=== PATIENT | male | born 1980 | race Caucasian/White ===

== ENCOUNTER 2017-04-28 16:33 | Emergency (ER) | payer BC, OTHER ==
[2017-04-28 16:59] VITALS: BP 139/93
--- NOTE | 2017-04-28 19:22 | UC ---
Abdominal Pain Male HPI - HPI Summary HPI Summary: Patient presents to the with CC of mid upper abdominal pain which is sharp and shooting through to the back. Denies urinary symptoms. Denies C/D. Notes to nausea and vomiting all day. Denies known fevers. Pain has been constant since this morning and worsening - worst abdominal pain of life. Health history is non-contributory. Cholecystectomy. - History of Current Complaint Hx Obtained From: Patient Onset/Duration: Sudden Onset Timing: Constant Severity Initially: Severe Severity Currently: Severe Pain Intensity: 10 Pain Scale Used: 0-10 Numeric Location: Discrete At: RUQ, Epigastric Radiates to: Back Character: Sharp Aggravating Factor(s): Food, Movement, Deep Breaths Alleviating Factor(s): Nothing Associated Signs And Symptoms: Positive: Vomiting. Negative: Constipation, Urinary Symptoms, Decreased Appetite, Diarrhea - Risk Factors Testicular Torsion: Negative Cardiac Risk Factors: Negative <Renée Nñuez - Last Filed: 04/28/17 19:18> <Rhonda Osei - Last Filed: 04/28/17 21:54> - History of Current Complaint Chief Complaint: UCGI Stated Complaint: STOMACH COMPLAINT Time Seen by Provider: 04/28/17 17:48 - Allergies/Home Medications Allergies/Adverse Reactions: Allergies Allergy/AdvReac Type Severity Reaction Status Date / Time No Known Allergies Allergy Verified 04/28/17 19:05 PMH/Surg Hx/FS Hx/Imm Hx Previously Healthy: Yes - Surgical History Surgical History: Yes Surgery Procedure, Year, and Place: [facility] 04/08. RADIO FREQUENCY NERVE ABLATION 2012 - Family History Known Family History: Positive: None - no family history of heart disease or diabetes., Unknown - Social History Occupation: Employed Full-time Lives: With Family Alcohol Use: Rare Substance Use Type: None Smoking Status (MU): Heavy Every Day Tobacco Smoker Type: Cigarettes Amount Used/How Often: 1 ppd Length of Time of Smoking/Using Tobacco: 12 years Have You Smoked in the Last Year: Yes <Renée Nuñez - Last Filed: 04/28/17 19:18> Review of Systems Constitutional: Negative ENT: Negative Respiratory: Negative Cardiovascular: Negative Gastrointestinal: Abdominal Pain, Vomiting, Nausea Genitourinary: Negative Motor: Negative Neurovascular: Negative, Decreased Sensation Neurological: Negative Is Patient Immunocompromised?: No All Other Systems Reviewed And Are Negative: Yes <Renée Nuñez - Last Filed: 04/28/17 19:18> Physical Exam Triage Information Reviewed: Yes Appearance: Well-Appearing, Well-Nourished Vital Signs: Initial Vital Signs Temp 98.5 F 04/28/17 16:55 Pulse 92 04/28/17 16:55 Resp 18 04/28/17 16:55 BP 139/93 04/28/17 16:55 Pulse Ox 98 04/28/17 16:55 Vital Signs Reviewed: Yes Eye Exam: Normal Eyes: Positive: Conjunctiva Clear Neck exam: Normal Neck: Positive: Supple, No Lymphadenopathy Respiratory Exam: Normal Respiratory: Positive: Chest non-tender, Lungs clear Cardiovascular Exam: Normal Cardiovascular: Positive: RRR Abdomen Description: Positive: Guarding. Negative: CVA Tenderness (R), CVA Tenderness (L), McBurney's Point Tenderness, Peritoneal Signs, Pulsatile Mass, Splenomegaly Musculoskeletal Exam: Normal Musculoskeletal: Positive: Strength Intact Neurological Exam: Normal Neurological: Positive: Alert Psychological: Positive: Normal Response To Family Skin Exam: Normal <Renée Nuñez - Last Filed: 04/28/17 19:18> Vital Signs: Initial Vital Signs Temp 98.5 F 04/28/17 16:55 Pulse 92 04/28/17 16:55 Resp 18 04/28/17 16:55 BP 139/93 04/28/17 16:55 Pulse Ox 98 04/28/17 16:55 <Rhonda Osei - Last Filed: 04/28/17 21:54> Abd Pain Male Course/Dx - Course Course Of Treatment: Patient evaluated for acute abdominal pain. Immediately after physical exam, patient is recommneded to go directly to the ED. Patient agrees and no tests were done in the UC. Discussed possibilities including pancreatitis as a possibility of his symptoms. Given information - but did NOT dx. - Differential Dx/Clinical Impression Differential Diagnosis/HQI/PQRI: Appendicitis, Bowel Obstruction, Constipation, Pancreatitis Provider Diagnoses: Abdominal Pain - acute <Renée Nuñez - Last Filed: 04/28/17 19:18> Discharge <Renée Nuñez - Last Filed: 04/28/17 19:18> <Rhonda Osei - Last Filed: 04/28/17 21:54> - Discharge Plan Condition: Stable Disposition: HOME Patient Education Materials: Pancreatitis (ED), Abdominal Pain (ED) Referrals: No Primary Care Phys,NOPCP [Primary Care Provider] - Additional Instructions: I recommend you go directly to the ED I am not dx you with pancreatitis, I am only giving you information Attestation Statement User Type: Provider - I was available for consult. This patient was seen by the [facility]. The patient was not presented to, seen by, or examined by me. -Olivia <Rhonda Osei - Last Filed: 04/28/17 21:54>
== END 2017-04-28 18:04 | disposition home or self-care (01) ==
LOC: UCEAST 16:33
DX: R10.9 Unspecified abdominal pain (principal); F17.210 Nicotine dependence, cigarettes, uncomplicated
CPT/HCPCS: 99212; G0463

== ENCOUNTER → 2017-04-28 18:56 | Emergency (ER) | payer SELFPAY ==
[2017-04-28 19:07] VITALS: BP 146/94
== END | disposition home or self-care (01) ==
LOC: ED 18:56
DX: R10.10 Upper abdominal pain, unspecified (principal); Z53.21 Procedure and treatment not carried out due to patient leaving prior to being seen by health care provider
CPT/HCPCS: 99281

== ENCOUNTER 2018-08-29 11:00 | Emergency (ER) | payer BC ==
--- NOTE | 2018-08-29 11:36 | ED ---
Substance Abuse/Use - HPI Summary HPI Summary: A 38 y/o male brought in by ambulance presents to the ED c/o drowsiness s/p abuse of prescribed medications. In the ED room, the patient has a pulse of 83 BPM, O2 saturation of 99%, respiratory rate of 22, and blood pressure of 135/ 105. As per EMS, the patient's vitals are stable, blood-glucose was 86, lungs are clear, and patient is very fatigued. Patient was found in his car at a gas station. The patient just completed a 24 hour shift confirmed by mother. According to the patient, he recently got out of work and he was fatigued so he thought he would take a nap in his car (parked and turned off) before going home which is a few miles away. It was noted that the patient was seen at another facility for neck pain in which he received Oxycodone and Xanax medications. According to the patient, he worked at the [employer] from 1445 to 2245 and then at [employer] from 2300 to 0800 this morning. He stated that after work he went to his mother's house to see his children. He stated that on the way back home he stopped at another gas station for a 5-hour energy and lottery tickets which is when he went to sleep. He stated that he took 2 Oxycodone and a XR 20 mg Xanax around along with a muscle relaxer 0900 to 0930. The patient denies any pain whatsoever. Patient also denies any headache, vomiting, diarrhea, chest pain, SOB, cough, or recent illness. Patient believes he is healthy and has no complaints at this time. Patient denies any COPD, respiratory/breathing issues, or any recreational drug use. Patient lives with . PMHx of bleeding ulcer in April 2018. - History Of Current Complaint Stated Complaint: AMS Time Seen by Provider: 08/29/18 11:04 Hx Obtained From: Patient, EMS Ingestion History: Type/Name Of Drug - OXYCODONE, MUSCLE RELAXER, AND XANAX, Amount Ingested - 2 OXYCODONE, 20 MG XANAX, Approximate Time Of Ingestion - 0900 -0930 Overdose Characteristics: Oral Severity Currently: None Aggravating Factor(s): Nothing Alleviating Factor(s): Nothing Associated Signs And Symptoms: Negative - Allergies/Home Medications Allergies/Adverse Reactions: Allergies Allergy/AdvReac Type Severity Reaction Status Date / Time No Known Allergies Allergy Verified 04/28/17 19:05 PMH/Surg Hx/FS Hx/Imm Hx Endocrine/Hematology History: Denies: Hx Diabetes Cardiovascular History: Reports: Hx Hypertension Denies: Hx Pacemaker/ICD Respiratory History: Denies: Hx Asthma, Hx Chronic Obstructive Pulmonary Disease (COPD) GI History: Reports: Other GI Disorders - current abdominal pain History: Denies: Hx Renal Disease Musculoskeletal History: Reports: Other Musculoskeletal History - chronic neck pain, on daily narcotic pain med and neurontin Sensory History: Denies: Hx Hearing Aid Neurological History: Denies: Hx Headaches Psychiatric History: Denies: Hx Depression, Hx Panic Disorder - Surgical History Surgery Procedure, Year, and Place: [facility] 04/08. RADIO FREQUENCY NERVE ABLATION 2012 Infectious Disease History: Reports: Hx Shingles Denies: Hx Clostridium Difficile, Hx Human Immunodeficiency Virus (HIV), Hx of Known/Suspected MRSA, Hx Tuberculosis, Hx Known/Suspected VRE, Hx Known/ Suspected VRSA, History Other Infectious Disease - Family History Known Family History: Negative: Diabetes - Social History Alcohol Use: Rare Substance Use Type: Reports: None Hx Tobacco Use: Yes Smoking Status (MU): Heavy Every Day Tobacco Smoker Type: Cigarettes Amount Used/How Often: 1 ppd Length of Time of Smoking/Using Tobacco: 12 years Have You Smoked in the Last Year: Yes Review of Systems Positive: Fatigue. Negative: Fever Negative: Chest Pain Negative: Shortness Of Breath, Cough Negative: Vomiting, Diarrhea Negative: Headache All Other Systems Reviewed And Are Negative: Yes Physical Exam - Summary Physical Exam Summary: Appearance: Well appearing, no pain distress Skin: warm, dry, reflects adequate perfusion, no track anderson Head/face: normal Eyes: pupils are small ENT: mucous membranes moist Neck: supple, non-tender Respiratory: CTA, breath sounds present Cardiovascular: RRR, pulses symmetrical Abdomen: non-tender, soft Bowel Sounds: present Musculoskeletal: normal, strength/ROM intact Neuro: normal, sensory motor intact, A&Ox3, mild slurred speech and mild drowsiness, GCS 15. Triage Information Reviewed: Yes Vital Signs Reviewed: Yes Course/Dx - Course Course Of Treatment: Nurse's notes reviewed. Patient had taken prescription opiate medication in addition to muscle relaxant and possibly gabapentin and fallen asleep in his car for a brief time. He was not found to be called in these 0 temperatures. He was brought here rather than charged by police. He has no injury and is alert with mild slurring of speech at this time. He was discharged in the care of his mother who will provide safe ride. He demonstrates mild slurring of speech with normal mentation and steady gait. - Diagnoses Provider Diagnoses: Overdose of opiate or related narcotic, Polypharmacy Discharge - Sign-Out/Discharge Documenting (check all that apply): Patient Departure - DISCHARGE Patient Received Moderate/Deep Sedation with Procedure: No - Discharge Plan Condition: Improved Disposition: HOME Patient Education Materials: Opioid Safety (ED), Prescription Narcotic Overdose (ED) Referrals: Vivi Rodriguez NP [Primary Care Provider] - Additional Instructions: Your pain medication and muscle relaxers can be very sedating. Do not take them an attempt to drive. Call your doctor to adjust her medications down as they cause drowsiness. Do not take more than prescribed. If you feel you have addiction I have provided resources to you in the form of pamphlets. Return if worse, new symptoms or other concerns. Do not drive today. - Billing Disposition and Condition Condition: IMPROVED Disposition: Home - Attestation Statements Document Initiated by Sanjuanita: Yes Documenting Scribe: Saúl Mcgill Provider For Whom Sanjuanita is Documenting (Include Credential): Luke Keller MD Scribe Attestation: Saúl Solorzano scribed for Luke Keller MD on 08/29/18 at 1209. Scribe Documentation Reviewed: Yes Provider Attestation: The documentation as recorded by the Saúl mixon accurately reflects the service I personally performed and the decisions made by me, Luke Keller MD Status of Scribe Document: Viewed
[2018-08-29 13:14] VITALS: BP 111/61
== END 2018-08-29 13:15 | disposition home or self-care (01) ==
LOC: ED 11:00
DX: T40.601A Poisoning by unspecified narcotics, accidental (unintentional), initial encounter (principal); Y92.9 Unspecified place or not applicable; I10 Essential (primary) hypertension; M54.2 Cervicalgia; G89.29 Other chronic pain; F17.210 Nicotine dependence, cigarettes, uncomplicated
CPT/HCPCS: 99283

== ENCOUNTER 2019-04-10 10:55 | Emergency (ER) | payer BC ==
--- OUTSIDE RECORDS SUMMARY | 2019-04-10 11:00 | XMS REPORT | Summary of Care ---
:1980 Author Organization [facility] Address [address] [facility] [place] [address] Care Team Providers Name Role Phone Denver Fernandez MD Primary Care Provider Reason for Visit Reason Comments Medication Refill needs soma, xanax and oxycodone refilled Encounter Details Date Type Department Care Team Description 03/18/2019 Office Visit [facility] Vivi Rodriguez, Chronic neck pain (Primary Dx); Practice [employer] Generalized anxiety disorder [address] [place] [address] [place] [address] [phone] Allergies Active Allergy Reactions Severity Noted Date Comments No Known Drug Allergy 11/23/2007 documented as of this encounter (statuses as of 03/18/2019) Medications Medication Sig Dispensed Refills Start Date End Date Status pantoprazole Take 1 Tab by 180 Tab 1 06/17/2018 Active (PROTONIX) 40 MG mouth TWICE Oral Tab EC DAILY. amLodipine Take 1 Tab by 30 Tab 5 08/28/2018 Active (NORVASC) 5 MG mouth DAILY. Oral TabIndications: Essential hypertension Gabapentin 600 MG Take 2 Tabs 180 Tab 5 12/25/2018 Active Oral Tab by mouth THREE TIMES DAILY. ALPRAZolam (XANAX) Take 1 Tab by 90 Tab 0 03/18/2019 Active 0.5 MG Oral mouth THREE TabIndications: TIMES DAILY Generalized NEEDED anxiety disorder (anxiety). Max Daily Amount: 1.5 mg. Okay to dispense early for vacation/trip to [place] Oxycodone HCl 10 Take 2 Tabs 240 Tab 0 03/18/2019 Active MG Oral by mouth TabIndications: EVERY SIX Chronic neck pain HOURS NEEDED (pain). Max Daily Amount: 80 mg. Okay to dispense early for vacation trip to [place] carisoprodol Take 1 Tab by 150 Tab 3 03/18/2019 Active (SOMA) 350 MG Oral mouth EVERY TabIndications: FOUR HOURS Chronic neck pain NEEDED (muscle pain). Max Daily Amount: 1,750 mg. Okay to dispense early for upcoming trip to [place] carisoprodol Take 1 Tab by 150 Tab 3 11/26/2018 Discontinued (SOMA) 350 MG Oral mouth EVERY 9 (Reorder) TabIndications: FOUR HOURS Chronic neck pain NEEDED (muscle pain). Max Daily Amount: 1,750 mg. ALPRAZolam (XANAX) Take 1 Tab by 90 Tab 0 02/23/2019 Discontinued 0.5 MG Oral mouth THREE 9 (Reorder) TabIndications: TIMES DAILY Generalized NEEDED anxiety disorder (anxiety). Max Daily Amount: 1.5 mg. Oxycodone HCl 10 Take 2 Tabs 240 Tab 0 02/23/2019 Discontinued MG Oral by mouth 9 (Reorder) TabIndications: EVERY SIX Chronic neck pain HOURS NEEDED (pain). Max Daily Amount: 80 mg. carisoprodol Take 1 Tab by 150 Tab 3 03/18/2019 Discontinued (SOMA) 350 MG Oral mouth EVERY 9 (Reorder) TabIndications: FOUR HOURS Chronic neck pain NEEDED (muscle pain). Max Daily Amount: 1,750 mg. Okay to dispense early for upcoming vacation trip to [place] documented as of this encounter (statuses as of 03/18/2019) Active Problems Problem Noted Date Cervical spondylolysis 09/04/2018 Overview: Added automatically from request for surgery [id number] UGIB (upper gastrointestinal bleed) 05/25/2018 Spondylosis of cervical region without myelopathy or radiculopathy 03/31/2018 Overview: Added automatically from request for surgery [id number] Duodenal ulcer 05/06/2017 Esophageal candidiasis 05/06/2017 Intractable migraine without aura and without status migrainosus 12/27/2016 Blackout spell 12/26/2016 Herpes zoster complicated 12/05/2016 Overview: Recurrent herpetic outbreak right side neck. Periodic headache syndrome 12/05/2016 Essential hypertension 02/20/2015 Chronic neck pain 07/19/2013 Overview: In past saw Dr. Lamb and SH[facility]ER OUT Brisa Lerner at [facility]. Also seeing Dr. Dunham in [place] for neuropathic pain therapy with injections. (prolozone injections). Starting prolotherapy 08/22/14. Diagnosed with brachial neuritis, myositis, cervicalgia. Current smoker 07/19/2013 Generalized anxiety disorder 07/19/2013 documented as of this encounter (statuses as of 03/18/2019) Resolved Problems Problem Noted Date Resolved Date Childhood Heart Murmur 11/23/2007 07/19/2013 documented as of this encounter (statuses as of 03/18/2019) Immunizations Name Administration Dates Next Due IN-CLINIC MED ADMINISTRATION 03/01/2010 Toradol (60 mg) 03/01/2010 documented as of this encounter Social History Tobacco Use Types Packs/Day Years Used Date Current Every Day Smoker Cigarettes 0.75 Smokeless Tobacco: Never Used Alcohol Use Drinks/Week oz/Week Comments No 0 Standard drinks or equivalent 0.0 denies Sex Assigned at Date Recorded Not on file Job Start Date Occupation Industry Not on file Not on file Not on file Travel History Travel Start Travel End No recent travel history available. documented as of this encounter Last Filed Vital Signs Vital Sign Reading Time Taken Comments Blood Pressure 150/82 03/18/2019 7:43 AM EDT Pulse 72 03/18/2019 7:43 AM EDT Temperature - - Respiratory Rate - - Oxygen Saturation - - Inhaled Oxygen Concentration - - Weight 64 kg (141 lb 3.2 oz) 03/18/2019 7:43 AM EDT Height - - Body Mass Index 22.12 02/23/2019 7:31 AM EDT documented in this encounter Patient Instructions Patient InstructionsVivi Rodriguez FNP - 03/18/2019 7:40 AM EDTTaper down to 7 tabs pain med a day. Taper down to 2 tabs of xanax a day Prescriptions sent to your pharmacy. Follow up in about 5 week: April 27. documented in this encounter Progress Notes Vivi Rodriguez FNP - 03/18/2019 7:40 AM EDT PATIENT: Manuel Woods : 1980 DATE OF SERVICE: 03/18/2019 Chief Complaint Patient presents with Medication Refill needs soma, xanax and oxycodone refilled SUBJECTIVE: Manuel Woods is a 39-y.o. male who is here for refills of controlled pain med and muscle relaxers. He continues to see interventional pain specialist for injections which help the migraines but not the neck pain. He will try to reduce daily dose of pain med. He feels the soma helps the most. The patient is taking hypertensive medications compliantly without side effects. Denies chest pain,dyspnea, edema, or TIA's. NO dizziness. BP up today but just came from working overnight. Patient Active Problem List Diagnosis Date Noted Cervical spondylolysis 09/04/2018 Added automatically from request for surgery [id number] UGIB (upper gastrointestinal bleed) 05/25/2018 Spondylosis of cervical region without myelopathy or radiculopathy 2017 Added automatically from request for surgery [id number] Duodenal ulcer 05/06/2017 Esophageal candidiasis (HCC) 05/06/2017 Intractable migraine without aura and without status migrainosus 2016 Blackout spell 12/26/2016 Herpes zoster complicated 12/05/2016 Recurrent herpetic outbreak right side neck. Periodic headache syndrome 12/05/2016 Essential hypertension 02/20/2015 Chronic neck pain 07/19/[address] Lamb and SHAKER OUT Brisa Lerner at [facility]. Also seeing Dr. Dunham in [place] for neuropathic pain therapy with injections. (prolozone injections). Starting prolotherapy 08/22/14. Diagnosed with brachial neuritis, myositis, cervicalgia. Current smoker 07/19/2013 Generalized anxiety disorder 07/19/2013 Current Outpatient Medications Medication Sig ALPRAZolam (XANAX) 0.5 MG Oral Tab Take 1 Tab by mouth THREE TIMES DAILY NEEDED (anxiety).Max Daily Amount: 1.5 mg. Okay to dispense early for vacation/trip to [place] amLodipine (NORVASC) 5 MG Oral Tab Take 1 Tab by mouth DAILY. carisoprodol (SOMA) 350 MG Oral Tab Take 1 Tab by mouth EVERY FOUR HOURS NEEDED (muscle pain). Max Daily Amount: 1,750 mg. Okay to dispense early for upcoming trip to [place] Gabapentin 600 MG Oral Tab Take 2 Tabs by mouth THREE TIMES DAILY. Oxycodone HCl 10 MG Oral Tab Take 2 Tabs by mouth EVERY SIX HOURS NEEDED (pain). Max DailyAmount: 80 mg. Okay to dispense early for vacation trip to [place] pantoprazole (PROTONIX) 40 MG Oral Tab EC Take 1 Tab by mouth TWICE DAILY. No current facility-administered medications for this visit. OBJECTIVE: BP 150/82 | Pulse 72 | Wt 141 lb 3.2 oz (64 kg) | BMI 22.12 kg/m He is alert and in no distress. Chest is clear, no wheezing or rales. Normal symmetric air entry throughout both lungfields. Heart RRR. BP Readings from Last 3 Encounters: 03/18/19 150/82 02/23/19 118/70 01/21/19 134/86 Wt Readings from Last 3 Encounters: 03/18/19 141 lb 3.2 oz (64 kg) 02/23/19 142 lb (64.4 kg) 01/21/19 144 lb (65.3 kg) ASSESSMENT: ICD-9-CM ICD-10-CM 1. Generalized anxiety disorder 300.02 F41.1 ALPRAZolam (XANAX) 0.5 MG Oral Tab 2. Chronic neck pain 723.1 M54.2 Oxycodone HCl 10 MG Oral Tab 338.29 G89.29 carisoprodol (SOMA) 350 MG Oral Tab DISCONTINUED: carisoprodol (SOMA) 350 MG Oral Tab The [facility] I-Stop site was accessed and there was no concerns noted regarding his controlled substance usage. Reference #: [id number] Patient Instructions Taper down to 7 tabs pain med a day. Taper down to 2 tabs of xanax a day Prescriptions sent to your pharmacy. Follow up in about 5 week: April 27. Author: CARLY Vick 03/18/2019 08:09 documented in this encounter Plan of Treatment Date Type Specialty Care Team Description 05/28/2019 Hospital Encounter Anesthesiology Brennon, Short Procedure MD [place] [address] [place] [address] 05/28/2019 Surgery Brennon, RADIOFREQUENCY MD [place] ABLATION,MEDIAL BRANCH 1 [address] NERVE CERVICAL [address] [place] [address] 06/17/2019 Office Visit [facility], Clinic MD [address] [place] [place] [address] Health Maintenance Due Date Last Done Comments PNEUMOCOCCAL 0-64 YRS (1 of 1 1987 - PPSV23) DEPRESSION SCREENING 06/17/2019 06/17/2018, 12/19/2016 HPV IMMUNIZATION SERIES Aged Out No longer eligible based on patient's age to complete this topic MENINGOCOCCAL VACCINE IMM Aged Out No longer eligible based on patient's age to complete this topic documented as of this encounter Goals Goal Patient Goal Associated Recent Patient-Stated? Author Type Problems Progress Lack of Barrier sam Sarmiento FNP Note: This is an individualized goal for Manuel Woods: Our records indicate that you may not have health insurance. This can be a barrier to getting necessary medical care. Our business office may be able to help. Please call the [place] [facility] at [phone] and schedule an appointment to evaluate your options. You may be eligible for a health insurance product which could help pay for your doctor's visits and medications. Blood Pressure < Blood Pressure 150/82 (03/18/2019 Vivi Sarmiento FNP 140/90 7:43 AM EDT) Note: This is an individualized treatment (blood pressure) goal for Manuel Woods: Displayed above (on the left) is your goal for blood pressure control. Your most recent blood pressure is also shown above, on the right. You should try to achieve blood pressures that are lower than your goal listed above (on the left). Work with your Senior Graduate Advisor General Vivi Sarmiento FNP Note: This is an individualized treatment (frequent ED use) goal for Manuel Woods: Please work with your Senior Graduate Advisor, who will assist you in meeting your goals of care. Weight loss vs. 18 mo Lifestyle 38.8 (03/18/2019 7:43 AM No Vivi Rodriguez FNP max (lbs) >= 10 EDT) Note: This is an individualized lifestyle goal for Manuel Woods: Your body mass index (BMI) is more than 30. You should lose weight. A reasonable starting goal is to lose 10 pounds. Displayed above is how many pounds you have lost thus far towards your 10 pound weight loss goal. Regular appointments with primary care Lifestyle No Vivi Rodriguez FNP provider (PCP) Note: This is an individualized lifestyle goal for Manuel Woods: Please schedule regular visits with your primary care provider (PCP). Care provided in your PCP's office can help reduce your need for additional trips to the Emergency Room. Take all prescribed medications as Self-management No Vivi Rodriguez FNP directed Note: This is an individualized self-management goal for Manuel Woods: Please take all prescribed medications as directed. 1. Do not skip doses. If you cannot afford your medications, talk with your doctor. 2. Use a pill reminder system such as a pill box if needed. Your pharmacist can help you with this. 3. Contact your Pharmacy 5 days before your medication runs out. If you cannot take your medications for any reasons, talk with your doctor. 4. Please bring all of your medication bottles and inhalers (or a list of all your medications/inhalers) with you to every visit. Potential barriers to meeting all of your care plan goals will continue to be addressed on an ongoing basis. documented as of this encounter Results Not on filedocumented in this encounter Visit Diagnoses Diagnosis Chronic neck pain - Primary Cervicalgia Generalized anxiety disorder documented in this encounter Insurance Payer Benefit Plan / Subscriber ID Effective Dates Phone Address Type Group FELICIA GODFREY xxxxxxxxxxxx 2017-Present Felicia WOO Guarantor Name Account Type Relation to Date of Phone Billing Patient Address Manuel Woods Personal/Family [address] (Home) [place], [place] [phone] (Work) documented as of this encounter Advance Directives Code Status Date Activated Date Inactivated Comments Full Code 05/25/2018 10:52 PM 05/30/2018 11:33 AM Does patient have decision making capacity? yes Order discussed with: Patient I discussed all options and patient/surrogate requested and agreed to: Full Code Full Code 05/06/2017 5:01 AM 05/07/2017 5:15 PM Does patient have decision making capacity? yes Order discussed with: Patient I discussed all options and patient/surrogate requested and agreed to: Full Code"
[2019-04-10 11:01] VITALS: BP 120/76
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
== END 2019-04-10 12:25 | disposition home or self-care (01) ==
LOC: UCEAST 10:55
DX: J32.9 Chronic sinusitis, unspecified (principal); J40 Bronchitis, not specified as acute or chronic; I10 Essential (primary) hypertension; F17.210 Nicotine dependence, cigarettes, uncomplicated
CPT/HCPCS: 71046; 99212; G0463